=== PATIENT | female | born 1945 | race Caucasian/White ===

== ENCOUNTER → 2018-02-01 | Outpatient (CLI) | payer OTHER ==
[~2018-02-01] VITALS: Ht 160 cm; Wt 82.1 kg
[~2018-02-01] MED LIST: AMLODIPINE BESY10 MG PO; ASPIRIN81 M2 PO; CALCIUM 600 +1 EAC8 PO; FISH OIL 1,2001 EAC4 PO; MOBIC15 MG PO; OMEPRAZOLE 20 M20 M1 PO; SENTRY SENIOR1 EAC1 PO
--- NOTE | ~2018-02-01 | HPC ---
[facility] [address] [place] [address] PAIN MANAGEMENT CONSULTATION Name: JOHNNY MIR Room #: REG [facility].#: [id number] Admission: 02/01/18 Attend Phys: Adonis Cabral MD Discharge: Date of : 45 Report #: [id number] THIS REPORT FOR: //name// CC: Jayme Cabral DATE OF SERVICE: 02/01/2018 CHIEF COMPLAINT: Cervical pain and left shoulder pain. HISTORY OF PRESENT ILLNESS: The patient is here today with a cervical MRI as well as an MRI of her left shoulder, complaining of pain that radiates through her deltoid. Pain began in 11/2017. 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 She began experiencing symptoms fairly acutely. She had difficulty raising her left arm. There was weakness with shoulder abduction and is associated also with annoying aching pain, which she scored as a 7. It radiated down to her deltoid. She initially was assessed and sent to physical therapy, has been doing some stretching and strengthening exercises. She denied any numbness, tingling, or weakness and there are very few symptoms below the elbow, most of it involving the outer deltoid. She saw Dr. Childers at [facility]. She had an appointment with Dr. Cuevas but apparently was switched to Dr. Childers. She had a good appointment and Dr. Childers felt her pain was generated from the shoulder. Her has been a patient of mine for many years. He recommended that she come to me for another opinion. MEDICATIONS: Omeprazole, meloxicam, amlodipine, aspirin, fish oil, calcium. ALLERGIES: None. PAST MEDICAL HISTORY: Significant for hypertension. She has known osteoarthritis and has had bilateral knee replacements. PAST SURGICAL HISTORY: Hysterectomy was performed in 1990, a cholecystectomy in 1992. SOCIAL HISTORY: She denies use of tobacco or alcohol. She is . Her is with her today. 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 She has modified her work environment by placing an elevated platform around her chair, which has allowed her to work without having to perform shoulder abduction. [facility] [address] [place] [address] PAIN MANAGEMENT CONSULTATION Name: JOHNNY MIR Room #: REG [facility]#: [id number] Admission: 02/01/18 Attend Phys: Adonis Cbaral MD Discharge: Date of : 45 Report #: [id number] REVIEW OF SYSTEMS: Positive for some visual, lack of acuity and arthritis, but otherwise she answers no for all other questions. Impact pain is quite low. Pain interferes mostly with her work efforts. PHYSICAL EXAMINATION: GENERAL: She is a brayan 72-year-old pleasant, alert and oriented, without signs of depression, anxiety or overmedication. VITAL SIGNS: Her blood pressure is 172/71, heart rate 81, respirations 16. She is 5 feet 3 inches, 181 pounds, BMI is 32.1. HEENT: Head is normal. NECK: Reveals excellent range of motion with no exacerbation of any of her left arm symptoms in flexion, extension, agmv-[id number] rotation and lateral tilt. CHEST: Clear. CARDIAC: Rhythm is regular. ABDOMEN: Soft. MUSCULOSKELETAL: Reveals pain and weakness with left shoulder abduction. She can only bring her arm to approximately 75 degrees from vertical hang. Weakness is noted in abduction movement. There is minimal tenderness over the supraspinatus muscle relevant due to findings on the MRI. There may be slight atrophy there. IMAGING: X-rays reviewed include a cervical MRI, which shows multilevel degenerative disk disease with posterior disk osteophyte complex contributing to a moderate left and mild right neural foraminal stenosis. There is also a C6-C7 mild left neural foraminal stenosis. The MRI shows glenohumeral joint osteoarthrosis with [id number] appearance and a degenerative subchondral marrow edema and cystic change. There is a near full with tearing of the supraspinatus tendon at the footprint with medial retraction of the torn fibers by up to 2.0 ____. The remainder of the rotator cuff is intact. There is mild acromioclavicular joint arthrosis. IMPRESSION: I believe her pain is generated from her shoulder, not her neck, although there are certainly objective findings on both x-rays. Physical exam findings with weakness and abduction of the shoulder would suggest supraspinatus and biceps tendon involvement. The involvement of the single supraspinatus tendon would result in ability to abduct but would present with significant weakness as she has shown. RECOMMENDATIONS: Conservative management is appropriate with strengthening, physical therapy and anti-inflammatories. Cortisone injection using fluoroscopy or ultrasound to guide the needle would be my recommendation if an injection is to occur. [address] [address] PAIN MANAGEMENT CONSULTATION Name: JOHNNY MIR Room #: [facility]#: [id number] Admission: 02/01/18 Attend Phys: Adonis Cabral MD Discharge: Date of : 45 Report #: [id number] Regenerative medicine techniques have been utilized, but these are still extremely costly, and not covered by insurance at this point. Many stories of patients who have put down thousands of dollars for an uncovered injection. I do think that there is merit in considering this option, but it seems to be unreasonably expensive at this time. She was sent to Dr. Cuevas and Dr. Cuevas I informed her that performed a near miraculous reconstruction of my supraspinatus and biceps tendon when they were acutely injured. I have great respect for him in his approach to shoulder issues and I have suggested that she be her own advocate, return a call to [facility] and ask if she could see Dr. Cuevas for his opinions. No medications were ordered. No injections were provided. I will see her back if she would like to have a cortisone injection, although I feel quite confident that Dr. Cuevas can provide this for her at a followup visit in his office if she decides to go that direction. By: [id number] Adonis Cabral MD /nt
[2018-02-01 13:12] VITALS: BP 172/71
== END ==
LOC: PAIN 09:14
DX: M50.323 Other cervical disc degeneration at C6-C7 level (principal); M25.78 Osteophyte, vertebrae; M48.02 Spinal stenosis, cervical region; I10 Essential (primary) hypertension; Z79.899 Other long term (current) drug therapy; Z96.653 Presence of artificial knee joint, bilateral; Z90.710 Acquired absence of both cervix and uterus; Z90.49 Acquired absence of other specified parts of digestive tract